=== PATIENT | male | born 1985 | race Caucasian/White ===

== ENCOUNTER 2021-03-08 13:52 | Emergency (ER) | payer OTHER ==
[2021-03-08 15:17] LABS: BASOPHIL 0.2 % (0-2); EOSINOPHIL 1.5 % (0-5); HCT 46.9 % (42.0-52.0); HGB 15.7 g/dl (13.2-18.0); LYMPHOCYTE 29.8 % (15-48); MCH 29.7 pg (25.0-31.0); MCHC 33.5 g/dL (32.0-36.0); MCV 88.7 fL (78.0-100.0); MONOCYTE 6.5 % (0-12); MPV 9.4 fL (6.0-9.5); NEUTROPHIL 61.7 % (41-80); NRBC 0; PLT 310 K/uL (150-400); RBC 5.29 M/uL (4.70-6.00); RDW 12.6 % (11.5-14.0); WBC 10.3 K/uL (4.0-10.5)
[2021-03-08 15:26] LABS: BILIRUBIN NEGATIVE (NEGATIVE); BLOOD NEGATIVE Ery/uL (NEGATIVE); CLARITY CLEAR (CLEAR); COLOR YELLOW (YELLOW); GLUCOSE (U) NORMAL (NORMAL); LEUKOCYTES NEGATIVE Leu/uL (NEGATIVE); NITRITE NEGATIVE (NEGATIVE); PROTEIN NEGATIVE (NEGATIVE); UROBILINOGEN 0.2 mg/dL (0.2-1.0)
[2021-03-08 15:46] LABS: BUN/CREAT RATIO (CALC) 9.9 RATIO; CREATININE 0.81 mg/dL (0.67-1.17); POTASSIUM 3.7 mmol/L (3.5-5.1)
[2021-03-08] MEDS ORDERED: BENTYL10 MG PO (17:42)
[2021-03-08] MEDS ORDERED: VALACYCLOVIR1000 MG PO (17:42)
== END 2021-03-08 17:52 | disposition home or self-care (01) ==
LOC: FER 13:52
PROVIDERS: Nurse Practitioner Family
DX: A60.01 Herpesviral infection of penis (principal); R19.7 Diarrhea, unspecified
CPT/HCPCS: 36415; 80048; 81003; 85025; J7030; Q9967